=== PATIENT | female | born 1975 | race Two or more races ===

== ENCOUNTER 2018-02-03 11:58 | Emergency (ER) | payer MEDICAID ==
[~2018-02-03] VITALS: Ht 154.9 cm; Wt 59.0 kg
[2018-02-03 12:04] VITALS: BP 151/78
[2018-02-03] MEDS ORDERED: IBUPROFEN 800 MG TAB PO ONE (16:00)
== END 2018-02-03 16:45 | disposition home or self-care (01) ==
LOC: EDBD 11:58 → ER 11:58
DX: S16.1XXA Strain of muscle, fascia and tendon at neck level, initial encounter (principal); S30.1XXA Contusion of abdominal wall, initial encounter; R51 Headache; V43.52XA Car driver injured in collision with other type car in traffic accident, initial encounter; Y93.89 Activity, other specified; Y99.8 Other external cause status; Y92.410 Unspecified street and highway as the place of occurrence of the external cause
CPT/HCPCS: 70450; 72125; 74176

== ENCOUNTER 2019-01-31 11:57 | Emergency (ER) | payer MEDICAID ==
[~2019-01-31] VITALS: Ht 154.9 cm; Wt 53.1 kg
[2019-01-31] MEDS ORDERED: KETOROLAC TROMETH 60MG/2ML VIAL IM ONE (16:00)
[2019-01-31] MEDS ORDERED: METHOCARBAMOL 500 MG TAB PO ONE (16:00)
[2019-01-31 16:24] VITALS: BP 123/75
== END 2019-01-31 16:28 | disposition home or self-care (01) ==
LOC: EDBD 11:57 → ER 11:57
DX: M54.2 Cervicalgia (principal); R07.81 Pleurodynia; R55 Syncope and collapse; R11.0 Nausea; H53.8 Other visual disturbances; M25.551 Pain in right hip; Z98.51 Tubal ligation status; V43.52XA Car driver injured in collision with other type car in traffic accident, initial encounter; Y93.89 Activity, other specified; Y99.8 Other external cause status; Y92.410 Unspecified street and highway as the place of occurrence of the external cause
CPT/HCPCS: 70450; 71101; 72125; 73502; 96372; 99284; J1885